=== PATIENT | male | born 1980 | race Caucasian/White ===

== ENCOUNTER 2017-04-08 16:10 | Emergency (ER) | payer SELFPAY ==
--- NOTE | 2017-04-08 19:45 | ED PDOC ---
HPI: Psych/Substance Abuse Time Seen by Provider: 04/08/17 16:23 Chief Complaint (Nursing): Alcohol Ingestion Chief Complaint (Provider): Alcohol abuse History Per: Patient History/Exam Limitations: no limitations Onset/Duration Of Symptoms: Unknown Additional Complaint(s): Pt states he would like to nap. Brought in by EMS for ETOH. Pt also asks for sandwich in ER. Past Medical History Reviewed: Historical Data, Nursing Documentation, Vital Signs Vital Signs: Last Vital Signs Temp 98.1 F 04/08/17 16:14 Pulse 96 H 04/08/17 16:14 Resp 18 04/08/17 16:14 BP 126/86 04/08/17 16:14 Pulse Ox 99 04/08/17 16:14 - Medical History PMH: No Chronic Diseases - Surgical History Surgical History: No Surg Hx - Family History Family History: States: No Known Family Hx - Living Arrangements Living Arrangements: With Family - Social History Current smoker - smoking cessation education provided: No Alcohol: Occasional Drugs: Denies - Allergies Allergies/Adverse Reactions: Allergies Allergy/AdvReac Type Severity Reaction Status Date / Time No Known Allergies Allergy Verified 04/08/17 16:16 Review of Systems ROS Statement: Except As Marked, All Systems Reviewed And Found Negative Constitutional: Negative for: Fever, Chills Cardiovascular: Negative for: Chest Pain Respiratory: Negative for: Shortness of Breath Physical Exam - Reviewed Nursing Documentation Reviewed: Yes Vital Signs Reviewed: Yes - Physical Exam Appears: Positive for: Well, Non-toxic, No Acute Distress Head Exam: Positive for: ATRAUMATIC, NORMAL INSPECTION, NORMOCEPHALIC Skin: Positive for: Normal Color, Warm, DRY Eye Exam: Positive for: Normal appearance ENT: Positive for: Normal ENT Inspection Neck: Positive for: Normal, Painless ROM Cardiovascular/Chest: Positive for: Regular Rate, Rhythm Respiratory: Positive for: Normal Breath Sounds. Negative for: Accessory Muscle Use, Respiratory Distress Gastrointestinal/Abdominal: Positive for: Normal Exam, Bowel Sounds, Soft Back: Positive for: Normal Inspection Extremity: Positive for: Normal ROM Neurologic/Psych: Positive for: Alert, Oriented - ECG O2 Sat by Pulse Oximetry: 99 Medical Decision Making Medical Decision Makin - Clear speech and steady gait. Pt ate a sandwich in the ER. Disposition - Clinical Impression Clinical Impression: Alcohol abuse - Patient ED Disposition Is Patient to be Admitted: No Counseled Patient/Family Regarding: Diagnosis - Disposition Disposition: Routine/Home Disposition Time: 19:44 Condition: GOOD Instructions: Abuse of Alcohol (ED)
[2017-04-08 20:06] VITALS: BP 123/80; PULSE 83; RESP 16; TEMP 98.3; O2SAT 100
== END 2017-04-08 20:05 | disposition home or self-care (01) ==
LOC: H.ER 16:10
DX: F10.10 Alcohol abuse, uncomplicated (principal)